=== PATIENT | female | born 1950 | race Caucasian/White ===

== ENCOUNTER 2016-08-02 17:13 | Emergency (ER) | payer MEDICARE, BC ==
--- NOTE | ~2016-08-02 | ER ---
PATIENT'S NAME: [facility]ENNIE [facility] AGE: 66 Y [address] ROOM: [place] [address] LOCATION: [facility] ADMIT DATE: 08/02/2016 ER/Outpatient Report DISCHARGE DATE: 08/02/2016 FAMILY PHYSICIAN: PHYSICIAN, NO ATTENDING PHYSICIAN: Nael Khan Time of Arrival: 1725 hours. Time of Evaluation: 1745 hours. CHIEF COMPLAINT: Possible UTI and anxiety attack. HISTORY OF PRESENT ILLNESS: The patient states that for the last 2 days, she has not felt well. She feels like she is on fire. She has felt chilled and then breaks out in a sweat. She was ill 3 weeks ago with diarrhea, but that has calmed down. She states she does have some nasal congestion that has been going on for the past month. She had some generalized chest discomfort, nauseated, having dry heaves. She states she has generalized pain, but the pain is no different than the pain that she has all the time. She is rather tearful and crying, states she just does not feel well and she is not sure what is going on. She reports she does have frequent UTIs and is concerned that that is what is causing her to not feel well. She is here visiting her son from [place]. ALLERGIES: NO KNOWN ALLERGIES. CURRENT MEDICATIONS: On her chart and reviewed by me. PAST MEDICAL HISTORY: Syw-ewqpmue-pnsxuxyjd diabetes, COPD, hypertension, nerve pain, and chronic pain. PAST SURGERIES: Cholecystectomy. SOCIAL HISTORY: She lives in [place], [place]. She is here visiting for the next 2 weeks. Denies use of tobacco, drugs, or alcohol. REVIEW OF SYSTEMS: All negative other than those mentioned in the HPI. PHYSICAL EXAMINATION: PATIENT'S NAME: JENNIE [facility] AGE: 66 Y [address] ROOM: [place], [place] [address] LOCATION: [facility] ADMIT DATE: 08/02/2016 ER/Outpatient Report DISCHARGE DATE: 08/02/2016 FAMILY PHYSICIAN: PHYSICIAN, NO ATTENDING PHYSICIAN: Nael Khan VITAL SIGNS: She weighted 96.4 kg, blood pressure was 202/85, pulse of 114, respirations 22, temperature of 98.2, and O2 saturation is 95% on room air. GENERAL: She is awake, alert, and oriented x4. She is crying, upset, states she is just nervous, which she felt better. SKIN: [place], warm, and dry. HEENT: Nasal is boggy. Oropharynx is clear. NECK: Supple. No lymphadenopathy. LUNGS: Lung sounds are clear throughout. HEART: Regular rate and rhythm. ABDOMEN: Soft. Nondistended. Bowel sounds are present. EMERGENCY DEPARTMENT COURSE: Saline lock was initiated. Fluids of normal saline were started at a wide- open rate. She was given Zofran 4 mg IV and fluids were started. CBC is within normal limits. Chem panel shows BUN of 23 with a creatinine of 1.7. GFR is 30. Cardiac biomarkers are negative. Cath UA was performed, it is negative for infection. Lactate was 3. Procalcitonin was less than 0.05. EKG was completed, it shows a sinus tachycardia. The patient was monitored. Her vital signs did improve. Blood pressure came down to 133/58, last one was 103/56. Heart rate came down nicely in the 90s. O2 saturation remained above 95%. She denied having any pain. IMPRESSION: Viral illness. PLAN: Home, rest, fluids. Continue her current medications. If her symptoms persist or worsen, she may want to consider seeing a provider here in town or return to the ER. She and her son verbalized understanding. SHERRY SOTOMAYOR APRN FOR MD TAMIA VARELA/chava /[id number] d: 08/03/16 0149 t: 08/07/16 1315, OUTPATIENT REPORT
[2016-08-02 18:13] LABS: BASOPHIL % 0.8 %; EOSINOPHIL # 0.2 K/uL (0.0-0.5); EOSINOPHIL % 4.2 %; HEMATOCRIT 40.2 % (33.0-46.0); HEMOGLOBIN 13.2 g/dL (10.0-15.0); IMMATURE GRANULOCYTE % 0.4 %; LYMPHOCYTE # 1.6 K/uL (0.8-4.0); LYMPHOCYTE % 32.5 %; MCHC 32.8 gm/dL (32.0-36.5); MCV 88.4 fl (83.0-98.0); MONOCYTE # 0.4 K/uL (0.0-1.0); MONOCYTE % 7.3 %; MPV 10.1 fl (9.4-12.4); NEUTROPHIL # (ANC) 2.8 K/uL (1.8-7.8); NEUTROPHIL % 54.8 %; NRBC % 0 /100WBC (0-0.00); PLATELET COUNT 183 K/uL (150-450); RBC 4.55 M/uL (3.50-5.50); RDW-CV 13.2 % (11.9-14.6)
[2016-08-02 18:20] LABS: BILIRUBIN URINE NEGATIVE (NEGATIVE); BLOOD URINE NEGATIVE /UL (NEGATIVE); COLOR URINE YELLOW (YELLOW); GLUCOSE URINE NEGATIVE (NEGATIVE); KETONE URINE NEGATIVE (NEGATIVE); LEUKOCYTES URINE 25 /UL (NEGATIVE); NITRITE URINE NEGATIVE (NEGATIVE); PROTEIN URINE NEGATIVE (NEGATIVE); TURBIDITY URINE CLEAR (CLEAR); UROBILINOGEN URINE NORMAL (NORMAL)
[2016-08-02 18:28] LABS: BACTERIA URINE NEGATIVE (NEGATIVE); EPITHELIAL URINE 0-2 #/HPF (NEGATIVE); RBC URINE RARE #/HPF (NEGATIVE)
[2016-08-02 18:34] LABS: ALBUMIN 3.9 gm/dL (3.5-5.0); ALK PHOS 72 IU/L (33-138); ALT 47 IU/L (12-78); ANION GAP 15.9 (10.0-19.0); AST 31 IU/L (10-40); BLOOD UREA NITROGEN 23 mg/dL (6-24); CALCIUM 9.7 mg/dL (8.5-10.5); CHLORIDE 104 mMol/L (96-110); CO2 24 mMol/L (22-32); CPK 72 IU/L (21-215); CREATININE 1.7 mg/dL (0.5-1.1); ESTIMATED GFR (MDRD EQUATION) 30; POTASSIUM 3.9 mMol/L (3.7-5.1); SODIUM 140 mMol/L (135-145); TOTAL BILIRUBIN 0.6 mg/dL (0.0-1.5); TOTAL PROTEIN 7.4 g/dL (6.0-8.4)
== END 2016-08-02 19:48 | disposition disaster alternative care site (69) ==
LOC: GMED 17:13
PROVIDERS: Emergency Medicine
DX: B34.9 Viral infection, unspecified (principal); I10 Essential (primary) hypertension; E11.9 Type 2 diabetes mellitus without complications; Z90.49 Acquired absence of other specified parts of digestive tract; Z79.82 Long term (current) use of aspirin; Z79.899 Other long term (current) drug therapy; Z79.84 Long term (current) use of oral hypoglycemic drugs
CPT/HCPCS: J2405; J7030